=== PATIENT | female | born 1970 | race Two or more races ===

== ENCOUNTER 2022-09-01 13:52 | Emergency (ER) | payer OTHER ==
[~2022-09-01] VITALS: Ht 162.6 cm; Wt 81.6 kg
== END 2022-09-01 16:59 | disposition home or self-care (01) ==
LOC: ER 13:52
DX: B34.9 Viral infection, unspecified (principal); Z88.0 Allergy status to penicillin; Z20.822 Contact with and (suspected) exposure to COVID-19